=== PATIENT | male | born 1980 | race Two or more races ===

== ENCOUNTER 2021-01-28 08:55 | Emergency (ER) | payer SELFPAY ==
[~2021-01-28] VITALS: Ht 188 cm; Wt 95.3 kg
[~2021-01-28 08:55] MED LIST: BUS10T PO
[2021-01-28 08:59] VITALS: BP 127/95
== END 2021-01-28 09:07 | disposition left against medical advice (07) ==
LOC: ER 08:55 → EDBD 08:55 → EDUNIT# 08:55 → ER 09:07
DX: R10.30 Lower abdominal pain, unspecified (principal); R30.0 Dysuria; Z53.21 Procedure and treatment not carried out due to patient leaving prior to being seen by health care provider